=== PATIENT | female | born 1980 | race Caucasian/White ===

== ENCOUNTER 2016-08-21 11:01 | Emergency (ER) | payer OTHER ==
[~2016-08-21] VITALS: Ht 177.8 cm; Wt 96.1 kg
[~2016-08-21 11:01] MED LIST: ALBU8.5H3 INH; AZEL23SP INH; FEXO180T72 PO; MONT10TA9 PO; MULT-6 PO; NORG1TAB70 PO; VALA1000 PO; [UNRECOGNIZED DRUG - CODE] PO
[2016-08-21 11:14] VITALS: BP 120/78
[2016-08-21 12:40] LABS: BLOOD UREA NITROGEN 10 mg/dL (7-18)
== END 2016-08-21 14:25 | disposition home or self-care (01) ==
LOC: ED 12:09
DX: R51 Headache (principal); M54.12 Radiculopathy, cervical region
CPT/HCPCS: 36415; 70450; 72125; 80048; 82040; 85025; 99285

== ENCOUNTER → 2017-03-02 | Outpatient (CLI) | payer OTHER ==
[~2017-03-02] MED LIST changes: -ALBU8.5H3 INH; +ALBU8.5H8 INH
== END | disposition home or self-care (01) ==
LOC: CFH 13:26
DX: N63.24 Unspecified lump in the left breast, lower inner quadrant (principal); Z80.3 Family history of malignant neoplasm of breast
CPT/HCPCS: 77066

== ENCOUNTER 2017-08-30 19:19 | Emergency (ER) | payer OTHER ==
[~2017-08-30] VITALS: Ht 177.8 cm; Wt 100.0 kg
[~2017-08-30 19:19] MED LIST changes: +NORG1TAB28 PO; -NORG1TAB70 PO
[2017-08-30] MEDS ORDERED: BECL8.7A7 INH (19:45)
[2017-08-30] MEDS ORDERED: ONDANSETRON ODT 4 MG PO ONE (20:00)
[2017-08-30] MEDS ORDERED: KETOROLAC 30 MG/1 ML IM ONE (20:00)
[2017-08-30] MEDS ORDERED: KETOROLAC 30 MG/1 ML ONE (20:04)
[2017-08-30] MEDS ORDERED: ONDANSETRON ODT 4 MG ONE (20:04)
[2017-08-30 20:25] LABS: BASOPHILS % (AUTO) 1 % (0-1); EOSINOPHILS # (AUTO) 0.09 x10^3/uL (0-0.4); EOSINOPHILS % (AUTO) 1 % (1-7); LYMPHOCYTES # (AUTO) 2.67 x10^3/uL (1-3.4); LYMPHOCYTES % (AUTO) 29 % (22-44); MD NO; MEAN CORPUSCULAR HEMOGLOBIN 31.3 pg (27.0-34.8); MEAN CORPUSCULAR HGB CONC 33.8 g/dL (32.4-35.8); MEAN CORPUSCULAR VOLUME 92.7 fL (80-100); MEAN PLATELET VOLUME 8.2 fL (7.4-10.4); MONOCYTES # (AUTO) 0.39 x10^3/uL (0.2-0.8); MONOCYTES % (AUTO) 4 % (2-9); NEUTROPHILS # (AUTO) 6.01 x10^3/uL (1.8-6.8); NEUTROPHILS % (AUTO) 65 % (42-75); PLATELET COUNT 309 x10^3/uL (130-400); RED BLOOD COUNT 4.27 x10^6/uL (3.82-5.3)
[2017-08-30 20:31] LABS: ALANINE AMINOTRANSFERASE 20 U/L (12-78); ALBUMIN 3.6 g/dL (3.4-5.0); ANION GAP 8 mmol/L (5-15); CALCIUM 8.5 mg/dL (8.5-10.1); CHLORIDE 103 mmol/L (98-107); CREATININE 0.65 mg/dL (0.55-1.02)
[2017-08-30 20:35] LABS: ALKALINE PHOSPHATASE 47 U/L (45-117); BILIRUBIN,TOTAL 0.4 mg/dL (0.2-1.0); TOTAL PROTEIN 6.9 g/dL (6.4-8.2)
[2017-08-30 20:44] LABS: MICROSCOPIC NOT IND
[2017-08-30 20:50] LABS: CULTURE INDICATED? NO
[2017-08-30 21:05] VITALS: BP 122/87
== END 2017-08-30 21:27 | disposition home or self-care (01) ==
LOC: ED 19:55
DX: T67.5XXA Heat exhaustion, unspecified, initial encounter (principal); R51 Headache; X58.XXXA Exposure to other specified factors, initial encounter; Y93.89 Activity, other specified; Y92.89 Other specified places as the place of occurrence of the external cause; Y99.8 Other external cause status
CPT/HCPCS: 36415; 80053; 81003; 84703; 85025; 93005; 96372; 99285; J1885; Q0162

== ENCOUNTER 2017-12-29 10:52 | Outpatient (CLI) | payer OTHER ==
[~2017-12-29 10:52] MED LIST changes: +BECL8.7A7 INH
== END 2018-01-08 14:07 | disposition home or self-care (01) ==
LOC: CARD 10:52
PROVIDERS: ATTEND Family Medicine
DX: I47.1 Supraventricular tachycardia (principal)
CPT/HCPCS: 93225; 93226